=== PATIENT | male | born 1980 | race American Indian/Alaskan Native ===

== ENCOUNTER 2021-03-05 13:23 | Emergency (ER) | payer OTHER, SELFPAY ==
[2021-03-05 15:02] VITALS: BP 137/93
--- NOTE | 2021-03-05 15:06 | Event Note ---
ED Screening Note Date of service: 03/05/21 Time: 15:05 ED Screening Note: Complains of dizziness, fatigue, shortness of breath Tested positive for Covid 1 week ago History of diabetes This initial assessment/diagnostic orders/clinical plan/treatment(s) is/are subject to change based on patients health status, clinical progression and re- assessment by fellow clinical providers in the ED. Further treatment and workup at subsequent clinical providers discretion. Patient/guardian urged not to elope from the ED as their condition may be serious if not clinically assessed and managed. Initial orders include: Labs Chest x-ray
--- NOTE | 2021-03-05 15:28 | XRay Report ---
CHEST 2 VIEWS INDICATION / CLINICAL INFORMATION: +covid, SOB. COMPARISON: None available. FINDINGS: SUPPORT DEVICES: None. HEART / MEDIASTINUM: No significant abnormality. LUNGS / PLEURA: There is a questionable nodular opacity projecting over the right midlung. ADDITIONAL FINDINGS: No significant additional findings. IMPRESSION: 1. Nodular opacity projecting over the right midlung. Further evaluation with CT of the chest recomme nded. Signer Name: Tacos Chaidez MD Signed: 03/05/2021 3:24 PM Workstation Name: [id number]
[2021-03-05 15:47] LABS: Basophils % (Auto) 0.4 % (0.0-1.8); Eosinophils % (Auto) 0.1 % (0.0-4.3); Hematocrit 44.9 % (35.5-45.6); Hemoglobin 15.2 gm/dl (11.8-15.2); Lymphocytes # (Auto) 0.7 K/mm3 (1.2-5.4); Lymphocytes % (Auto) 17.3 % (13.4-35.0); Mean Corpuscular HGB Conc 34 % (32-34); Mean Corpuscular Volume 84 fl (84-94); Monocytes # (Auto) 0.5 K/mm3 (0.0-0.8); Platelet Count 167 K/mm3 (140-440); Red Blood Count 5.37 M/mm3 (3.65-5.03); Red Cell Distribution Width 14.2 % (13.2-15.2)
[2021-03-05 16:49] LABS: BUN/Creatinine Ratio 10; Blood Urea Nitrogen 10 mg/dL (9-20); Calcium 9.4 mg/dL (8.4-10.2); Hemolysis Index 16
[2021-03-05] MEDS ORDERED: SODIUM CHLORIDE 0.9% 1000 ML 1,000 ML IV ONE (19:35)
[2021-03-05] MEDS ORDERED: ACETAMINOPHEN 500 MG TAB PO ONE (19:35)
--- NOTE | 2021-03-05 19:39 | Emergency Department Report ---
ED General Adult HPI - General Chief complaint: Dyspnea/Respdistress Stated complaint: POSSIBLE COVID Time Seen by Provider: 03/05/21 15:05 Source: patient Mode of arrival: Ambulatory Limitations: No Limitations - History of Present Illness Initial comments: 40-year-old male patient with history of diabetes presents to the emergency department with complaints of fatigue, dizziness, decreased appetite, cough, and shortness of breath starting last week. Patient states he tested positive for COVID-19 six days ago. Since then, his symptoms have worsened. Patient states he has hardly had anything to eat or drink in the last 4 days. He has a history of diabetes but has been off of his Metformin for approximately 1 year. No known history of chronic lung disease. Patient uses vaping devices recreationally. Denies chest pain, palpitations, syncope, hemoptysis, wheezing, vomiting, diarrhea, rash. Denies all other complaints at this time. - Related Data Previous Rx's Medication Instructions Recorded Last Taken Type Azithromycin [Zithromax Z-BA] 0 mg PO DAILY #7 tab 03/05/21 Unknown Rx Metoclopramide [Reglan] 10 mg PO TID #20 tab 03/05/21 Unknown Rx metFORMIN [Glucophage] 500 mg PO BID #20 tablet 03/05/21 Unknown Rx Allergies Allergy/AdvReac Type Severity Reaction Status Date / Time No Known Allergies Allergy Unverified 03/05/21 14:56 ED Review of Systems ROS: Stated complaint: POSSIBLE COVID Other details as noted in HPI Other: GENERAL: Positive for fatigue, chills, decreased appetite. ENT: Negative for ear pain, difficulty hearing, sore throat, nasal congestion, epistaxis. CARDIOVASCULAR: Negative for chest pain, palpitations, lower extremity swelling. PULMONARY: Positive for cough and shortness of breath. GASTROINTESTINAL: Negative for abdominal pain, nausea, vomiting, diarrhea, constipation. MUSCULOSKELETAL: Negative for joint pain, joint swelling, myalgias, back pain, neck pain. NEUROLOGICAL: Positive for dizziness. INTEGUMENTARY: Negative for erythema, rash, diaphoresis, laceration, ecchymosis. HEMATOLOGICAL: Negative for hemoptysis, hematemesis, hematochezia, hematuria. PSYCHIATRIC: Negative for hallucinations, suicidal ideation, homicidal ideation, anxiety, depression. ED Past Medical Hx - Past Medical History Hx Diabetes: Yes - Surgical History Past Surgical History?: No - Social History Smoking Status: Current Every Day Smoker Substance Use Type: Alcohol - Medications Home Medications: Home Medications Medication Instructions Recorded Confirmed Last Taken Type Azithromycin [Zithromax Z-BA] 0 mg PO DAILY #7 tab 03/05/21 Unknown Rx Metoclopramide [Reglan] 10 mg PO TID #20 tab 03/05/21 Unknown Rx metFORMIN [Glucophage] 500 mg PO BID #20 tablet 03/05/21 Unknown Rx ED Physical Exam - General Limitations: No Limitations - Other Other exam information: General: Awake and alert. No acute distress. Head: Atraumatic, normocephalic. Eyes: EOMI. Pupils are equal and round. Normal sclera and conjunctiva. ENT: Oral mucosa is moist. Normal pharyngeal exam. Neck: Supple. No lymphadenopathy. Pulmonary: No respiratory distress. Clear to auscultation bilaterally. Cardiac: Regular rate and rhythm. Pulses are palpable and equal bilaterally. No lower extremity cyanosis or edema. Skin: Warm and dry. No rashes. Abdomen: Soft, non-tender, non-protuberant. No guarding, rigidity, or rebound. Bowel sounds are normal. No organomegaly or masses noted. Back: Normal alignment. No CVA tenderness. Extremities: Symmetrical. Full range of motion intact. Neurological: Alert and oriented, appropriately interactive, no focal deficits. Psych: Cooperative. Appropriate mood and affect. Speech is evenly metered. T houghts are logically construed. ED Course Vital Signs 03/05/21 14:58 Temperature 98.9 F Pulse Rate 86 Respiratory 20 Rate Blood Pressure 137/93 O2 Sat by Pulse 99 Oximetry ED Medical Decision Making - Lab Data Result diagrams: 03/05/21 15:32 03/05/21 15:32 - Radiology Data Study Comments [facility] [address] [place] [address] XRay Report Signed Patient: ANASTASIA KAYE MR# : [id number] : 1980 Acct:[id number] Age/Sex: 40 / M ADM Date: 03/05/21 Loc: ED Attending Dr: Ordering Physician: LAUREN VELA Date of Service: 03/05/21 Procedure(s): XR chest routine 2V Accession Number(s): [id number] cc: LAUREN VELA Fluoro Time In Minutes: CHEST 2 VIEWS INDICATION / CLINICAL INFORMATION: +covid, SOB. COMPARISON: None available. FINDINGS: SUPPORT DEVICES: None. HEART / MEDIASTINUM: No significant abnormality. LUNGS / PLEURA: There is a questionable nodular opacity projecting over the right midlung. ADDITIONAL FINDINGS: No significant additional findings. IMPRESSION: 1. Nodular opacity projecting over the right midlung. Further evaluation with CT of the chest recommended. Signer Name: Tacos Chaidez MD Signed: 03/05/2021 3:24 PM Workstation Name: [id number] Transcribed By: JES Dictated By: Tacos Chaidez MD Electronically Authenticated By: Tacos Chaidez MD Signed Date/Time: 03/05/21 1524 DD/DT: [address] [place] [address] [address] [place] [address] Cat Scan Report Signed Patient: ANASTASIA KAYE MR# : [id number] : 1980 Acct:[id number] Age/Sex: 40 / M ADM Date: 03/05/21 Loc: ED Attending Dr: Ordering Physician: SALLY DOCKERY Date of Service: 03/05/21 Procedure(s): CT angio chest Accession Number(s): [id number] cc: SALLY DOCKERY CTA CHEST WITH CONTRAST INDICATION / CLINICAL INFORMATION: COVID/abnormal CXR --> recommended CT for eval. Ages structures TECHNIQUE: Axial CT images were obtained through the chest after injection of 100 cc Omnipaque 350 IV contrast. 3 plane MIP and/or 3D reconstructions were produced. All CT scans at this location are performed using CT dose reduction for ALARA by means of automated exposure control. COMPARISON: None available. FINDINGS: PULMONARY ARTERIES: No pulmonary emboli. THORACIC AORTA: No significant abnormality. HEART: No significant abnormality. CORONARY ARTERY CALCIFICATION: None. MEDIASTINUM / RUPERT: No significant abnormality. PLEURA: No pleural effusion. No pneumothorax. LUNGS: There is multifocal groundglass opacity in the lungs. No discrete nodule is seen. The density seen on chest radiograph corresponds to some of these areas of parenchymal density. The appearance is characteristic of an atypical or viral pneumonia. There is a small calcified granuloma in the right upper lobe ADDITIONAL FINDINGS: None. UPPER ABDOMEN: No acute findings. SKELETAL STRUCTURES: No acute osseous abnormality is seen. IMPRESSION: 1. No CT evidence for pulmonary embolism. 2. There is multifocal groundglass density in the lungs characteristic of an atypical or viral pneumonia. This correlates with patient's history of Covid. No suspicious pulmonary nodules are seen. Signer Name: Landon Pichardo MD Signed: 03/05/2021 9:15 PM Workstation Name: [id number] Transcribed By: SS Dictated By: Landon Pichardo MD Electronically Authenticated By: Landon Pichardo MD Signed Date/Time: 03/05/212114 DD/ 09 TD/TT: - Medical Decision Making Differential diagnosis including but not limited to: pneumonia, pleural effusion, pulmonary embolism, pneumothorax, pertussis, tuberculosis, dehydration, electrode abnormality, hypoglycemia On reevaluation, patient is stable and symptoms have improved. No hypoxia, no respiratory distress. Patient is ambulatory without assistance and without oxygen desaturation. Blood glucose level is elevated and labs show evidence of mild dehydration without acidosis or ketosis. He has received a liter of IV fluids in the emergency department. Chest x-ray showed nodular opacity of the right lung; CT of the chest obtained per radiologist recommendation, which showed atypical vs. viral pneumonia. Labs are consistent with known diagnosis of COVID-19. No evidence of pulmonary embolism. No clinical indication for further diagnostic work-up on an emergent basis at this time. He is tolerating oral intake without difficulty and is in no respiratory distress to warrant hospital admission. He has no known history of pre-existing chronic lung conditions. Patient will be discharged home with prescription for Zithromax to cover possible atypical pneumonia as well as Reglan for nausea. He will also restarted on his Metformin and referred to primary care provider for close outpatient follow-up. Patient expressed understanding and is agreeable to plan of care. Disease transmission precautions discussed. Lifestyle modifications discussed. Strict return precautions provided. Repeat exam is unremarkable and benign. History, exam, diagnostic testing, and current condition do not suggest worrisome pathology to warrant further testing, continued ED treatment, admission, or surgical evaluation at this point. Given the low probability of a significant medical illness, it would be more likely to result in harm than benefit to perform further testing at this stage. Discussed findings, presumptive diagnosis, need for follow-up and specific signs/symptoms that should prompt immediate return to the emergency department. Instructions were explained in detail to the patient in addition to giving written discharge information. Patient expressed understanding and was given the opportunity to ask questions, all of which were satisfactorily answered prior to discharge home. Critical care attestation.: If time is entered above; I have spent that time in minutes in the direct care of this critically ill patient, excluding procedure time. ED Disposition Clinical Impression: COVID-19, History of diabetes mellitus Pneumonia Qualifiers: Pneumonia type: due to unspecified organism Laterality: bilateral Lung location: unspecified part of lung Qualified Code(s): J18.9 - Pneumonia, unspecified organism Disposition: DC- TO HOME OR SELFCARE Is pt being admited?: No Does the pt Need Aspirin: No Condition: Stable Instructions: COVID-19, Bacterial Pneumonia (ED) Additional Instructions: Take Tylenol every 4 hours and Motrin every 8 hours as needed for pain/fever. Take Reglan as needed for nausea. Take Metformin as previously directed. Take Zithromax with food as directed. Rest. Drink plenty of fluids. Wash hands frequently to prevent disease transmission. Do not share food or drinks with others. Please adhere to CDC guidelines regarding 14-day quarantine. Consider purchasing a portable pulse oximeter to monitor your oxygen levels. Follow-up with primary care provider. Call tomorrow to schedule an appointment. See referral information below. Return to the emergency department immediately for new or worsening symptoms. Prescriptions: metFORMIN [Glucophage] 500 mg PO BID #20 tablet Metoclopramide [Reglan] 10 mg PO TID #20 tab Azithromycin [Zithromax Z-BA] 0 mg PO DAILY #7 tab Referrals: HESHAM STEEN MD [Staff Physician] - 3-5 Days [facility] [Provider Group] - 3-5 Days Forms: Work/School Release Form(ED) Time of Disposition: 21:58
[2021-03-05 20:25] LABS: Bilirubin,Urine NEG (Negative); Blood,Urine NEG (Negative); Color,Urine Yellow (Yellow); Urobilinogen,Urine < 2.0 mg/dL (<2.0)
--- NOTE | 2021-03-05 21:20 | Cat Scan Report ---
CTA CHEST WITH CONTRAST INDICATION / CLINICAL INFORMATION: COVID/abnormal CXR --> recommended CT for eval. Ages structures TECHNIQUE: Axial CT images were obtained through the chest after injection of 100 cc Omnipaque 350 IV contrast. 3 plane MIP and/or 3D reconstructions were produced. All CT scans at this location are per formed using CT dose reduction for ALARA by means of automated exposure control. COMPARISON: None available. FINDINGS: PULMONARY ARTERIES: No pulmonary emboli. THORACIC AORTA: No significant abnormality. HEART: No significant abnormality. CORONARY ARTERY CALCIFICATION: None. MEDIASTINUM / RUPERT: No significant abnormality. PLEURA: No pleural effusion. No pneumothorax. LUNGS: There is multifocal groundglass opacity in the lungs. No discrete nodule is seen. The density seen on chest radiograph corresponds to some of these areas of parenchymal density. The appearance is characteristic of an atypical or viral pneumonia. There is a small calcified granuloma in the right upper lobe ADDITIONAL FINDINGS: None. UPPER ABDOMEN: No acute findings. SKELETAL STRUCTURES: No acute osseous abnormality is seen. IMPRESSION: 1. No CT evidence for pulmonary embolism. 2. There is multifocal groundglass density in the lungs characteristic of an atypical or viral pneumo sherrie. This correlates with patient's history of Covid. No suspicious pulmonary nodules are seen. Signer Name: Landon Pichardo MD Signed: 03/05/2021 9:15 PM Workstation Name: [id number]
== END 2021-03-05 22:40 | disposition home or self-care (01) ==
LOC: ED 13:23
DX: U07.1 COVID-19 (principal); J18.9 Pneumonia, unspecified organism; E11.9 Type 2 diabetes mellitus without complications; F17.200 Nicotine dependence, unspecified, uncomplicated; Z72.89 Other problems related to lifestyle; Z79.899 Other long term (current) drug therapy
CPT/HCPCS: 36415; 71046; 71275; 80048; 81001; 82805; 85025; 96360; 99284; J7030; Q9967